=== PATIENT | male | born 1960 | race Hispanic/Latino ===

== ENCOUNTER → 2018-07-07 | Outpatient (CLI) | payer MEDICARE | END | disposition home or self-care (01) | LOC: RAH 12:37 | PROVIDERS: ATTEND Psychiatry & Neurology Neurology | DX: R51 Headache (principal); R42 Dizziness and giddiness; I10 Essential (primary) hypertension; E78.5 Hyperlipidemia, unspecified; Z79.899 Other long term (current) drug therapy | CPT/HCPCS: 70450; 93880 ==

== ENCOUNTER → 2019-07-10 | Outpatient (CLI) | payer MEDICARE | END | disposition home or self-care (01) | LOC: RAH 14:21 | PROVIDERS: ATTEND Psychiatry & Neurology Neurology | DX: D18.02 Hemangioma of intracranial structures (principal) | CPT/HCPCS: 70450 ==

== ENCOUNTER 2019-10-28 09:43 | Emergency (ER) | payer MEDICARE ==
[2019-10-28 10:40] LABS: BASOPHILS % (AUTO) 0.4 % (0.0-5.0); EOSINOPHILS % (AUTO) 3.9 % (0.0-8.0); HEMATOCRIT 38.4 % (42-54); LYMPHOCYTES % (AUTO) 21.5 % (21.0-51.0); MEAN CORPUSCULAR HEMOGLOBIN 32.3 pg (27.0-33.0); MEAN CORPUSCULAR HGB CONC 33.6 g/dL (32.0-36.0); MEAN CORPUSCULAR VOLUME 96.2 fL (79-99); MONOCYTES % (AUTO) 7.5 % (3.0-13.0); NEUTROPHILS % (AUTO) 66.4 % (40.0-77.0); PLATELET COUNT (AUTO) 147 K/uL (130-400); RED BLOOD CELL COUNT(AUTO) 3.99 MIL/uL (4.50-6.20); RED CELL DISTRIBUTION WIDTH 12.1 % (11.0-15.5); WHITE BLOOD COUNT (AUTO) 8.9 K/uL (4.8-10.8)
[2019-10-28 10:54] LABS: CREATININE 0.9 mg/dL (0.5-1.5); POTASSIUM 4.5 mmol/L (3.5-5.1)
[2019-10-28 10:56] LABS: ALBUMIN 3.3 g/dL (3.5-5.0); BILIRUBIN,TOTAL 0.4 mg/dL (0.2-1.0); TOTAL PROTEIN, SERUM 6.1 g/dL (6.0-8.3)
[2019-10-28] MEDS ORDERED: ACETAMINOPHEN EXTRA STRENGTH 500 MG TABLET ONE (11:13)
[2019-10-28] MEDS ORDERED: CEFTRIAXONE SODIUM 1 GM ONE (11:32)
== END 2019-10-28 12:20 | disposition home or self-care (01) ==
LOC: EDH 09:43
DX: J01.00 Acute maxillary sinusitis, unspecified (principal); L03.211 Cellulitis of face; E78.5 Hyperlipidemia, unspecified; I10 Essential (primary) hypertension; Z88.1 Allergy status to other antibiotic agents
CPT/HCPCS: 36415; 70450; 70486; 80053; 85025; 96374; 99285; J0696

== ENCOUNTER → 2020-11-07 | Outpatient (CLI) | payer OTHER | END | disposition home or self-care (01) | LOC: SHCH 09:30 | PROVIDERS: ATTEND Internal Medicine Cardiovascular Disease | DX: I20.9 Angina pectoris, unspecified (principal); R06.09 Other forms of dyspnea; R07.9 Chest pain, unspecified | CPT/HCPCS: 93306; 93356 ==

== ENCOUNTER 2023-06-19 10:10 | Emergency (ER) | payer OTHER ==
[~2023-06-19] VITALS: Ht 170.2 cm; Wt 83.9 kg
[~2023-06-19 10:10] MED LIST: CIPOTIC AD
[2023-06-19] MEDS ORDERED: KETOROLAC 30MG VIAL (30MG/ML) ONE (11:32)
[2023-06-19] MEDS ORDERED: CYCLOBENZAPRINE HCL 10 MG TABLET ONE (11:32)
[2023-06-19 11:43] VITALS: BP 117/76; PULSE 63; RESP 17; O2SAT 98
[2023-06-19 11:45] LABS: BASOPHILS # (AUTO) 0.03 K/uL (0.00-0.20); BASOPHILS % (AUTO) 0.3 % (0.0-5.0); EOSINOPHILS # (AUTO) 0.16 K/uL (0.00-0.70); EOSINOPHILS % (AUTO) 1.8 % (0.0-8.0); HEMATOCRIT 42.8 % (42-54); IMMATURE GRANULOCYTE ABSOLUTE 0.03 K/uL (0-1); LYMPHOCYTES # (AUTO) 2.7 K/uL (1.0-4.8); LYMPHOCYTES % (AUTO) 30.9 % (21.0-51.0); MEAN CORPUSCULAR HEMOGLOBIN 33.1 pg (27.0-33.0); MEAN CORPUSCULAR HGB CONC 32.7 g/dL (32.0-36.0); MEAN CORPUSCULAR VOLUME 101.2 fL (79-99); MONOCYTES # (AUTO) 0.8 K/uL (0.1-1.0); MONOCYTES % (AUTO) 9.2 % (3.0-13.0); NEUTROPHILS # (AUTO) 5.1 K/uL (1.8-7.7); NEUTROPHILS % (AUTO) 57.5 % (40.0-77.0); PLATELET COUNT (AUTO) 166 K/uL (130-400); RED BLOOD CELL COUNT(AUTO) 4.23 MIL/uL (4.50-6.20); RED CELL DISTRIBUTION WIDTH 12.8 % (11.0-15.5); WHITE BLOOD COUNT (AUTO) 8.9 K/uL (4.8-10.8)
[2023-06-19 11:53] LABS: CREATININE 0.9 mg/dL (0.5-1.5); POTASSIUM 3.6 mmol/L (3.5-5.1)
[2023-06-19] MEDS ORDERED: CYCL10TA16 PO (11:55)
[2023-06-19] MEDS ORDERED: IBUP-2070 PO (11:55)
[2023-06-19 11:57] LABS: BILIRUBIN,TOTAL 0.4 mg/dL (0.2-1.0); TOTAL PROTEIN, SERUM 6.6 g/dL (6.0-8.3)
[2023-06-19] MEDS ORDERED: KETOROLAC 30MG VIAL (30MG/ML) IM ONE (12:00)
[2023-06-19] MEDS ORDERED: CYCLOBENZAPRINE HCL 10 MG TABLET PO ONE (12:00)
== END 2023-06-19 12:16 | disposition home or self-care (01) ==
LOC: EDH 10:10
DX: S83.8X2A Sprain of other specified parts of left knee, initial encounter (principal); I10 Essential (primary) hypertension; E78.00 Pure hypercholesterolemia, unspecified; Z85.46 Personal history of malignant neoplasm of prostate; Z79.899 Other long term (current) drug therapy; Z98.890 Other specified postprocedural states; Z88.1 Allergy status to other antibiotic agents; X58.XXXA Exposure to other specified factors, initial encounter; Y93.61 Activity, american tackle football; Y92.39 Other specified sports and athletic area as the place of occurrence of the external cause; Y99.8 Other external cause status
CPT/HCPCS: 99284; 80053; 85025; 36415; 73562; 96372; J1885